=== PATIENT | female | born 1950 | race Caucasian/White ===

== ENCOUNTER 2025-01-20 18:48 | Emergency (ER) | payer MEDICARE, OTHER, SELFPAY ==
[2025-01-20 19:04] VITALS: BP 190/108
--- NOTE | 2025-01-20 21:02 | ED.GENMED ---
History of Present Illness
General
Chief Complaint: Skin Surface Trauma
Source: patient and spouse
Exam Limitations: none
Time Seen by Provider: 01/20/25 20:25
Nursing documentation reviewed up to this point in time: agreed with
History of Present Illness
History of Present Illness:
74-year-old female presenting to the emergency department today with concerns of a skin injury to the left lower leg after dropping a box of sodas hitting her mejia. Denies additional injuries no numbness weakness or additional concerns. She
believes her tetanus shot is up-to-date.
Review of Systems
Review of Systems
Allergies reviewed?: Yes
All Other Systems: ROS reviewed and negative except as documented in HPI and ROS
Phy Exam
Physical Exam
Physical Exam:
GENERAL: Alert , in no apparent distress
EYE: pupils equal and reactive
NECK: Supple, no significant adenopathy.
ENT: o/p clr, mmm.
CARDIAC: Regular rate and rhythm .
LUNGS: Clear breath sounds bilaterally, no acute respiratory distress, no wheezes/rales/rhonchi
ABDOMEN: Soft, without focal tenderness, no r/g, no cvat
NEUROLOGICAL: Alert and oriented, no focal neuro deficits
SKIN: Laceration to the left anterior lower mejia roughly 7 cm in total length V-shaped subcutaneous in depth, no foreign body seen warm and dry, skin intact.
MUSCULOSKELETAL: No edema, well perfused.
PSYCH: Normal and appropriate interaction.
Course
Vital Signs
Initial and Last Documented VS:
Initial Vital Signs
Temp Pulse Resp BP Pulse Ox
98.4 F 72 18 190/108 98
01/20/25 19:04 01/20/25 19:04 01/20/25 19:04 01/20/25 19:04 01/20/25 19:04
Last Documented Vital Signs
Temp Pulse Resp BP Pulse Ox
98.4 F 72 18 190/108 98
01/20/25 19:04 01/20/25 19:04 01/20/25 19:04 01/20/25 19:04 01/20/25 19:04
Procedures
Laceration Closure
Left Anterior Distal Leg:
Status of Wound: clean
Size of Wound in cm: 7
Description of Wound Edges: sharp and flap-well vascularized
Preparation: cleaned with saline
Anesthesia: other (7 mL bupivacaine)
Revision/Debridement: routine- no revision
Wound exploration: explored to base- no FB and no tendon involvement
Type of Closure: single layer closure and interrupted sutures
Skin Closure Material: 4-0 nylon
Number of sutures: 8
MDM/Problems Addressed
MDM/Problems Addressed:
74-year-old female presenting to the emergency department after dropping a box of sodas onto her left mejia. Laceration cleaned thoroughly closed with 8 not dissolving stitches low risk for infection not started on prophylactic antibiotics no
evidence of bony injury or foreign body. X-ray not performed patient is up-to-date with her tetanus shot. Stable for outpatient management return precautions given.
*Critical Care Note
Total Time (30-74mins, 75-104mins- exclusive of procedures): Not Applicable
ED Attending Note
-
Portions of this chart may have been created with voice recognition software.� Occasional wrong word or��sound alike� substitutions may have occurred due to the inherent limitations of voice recognition software.
Discharge Plan
Departure
Patient Disposition: Home (Routine Discharge)
Date of Disposition: 01/20/25
Time of Disposition: 21:02
Patient with high blood pressure during this ER visit?: No
Condition: Good
Covid-19: Not Applicable
Discharge Problem:
Laceration of mejia
Instructions: Laceration Repair With Stitches (DC)
Referrals:
Darrin Chapin MD [Family Provider] -
Activity Restrictions/Additional Instructions:
You came to the emergency department today with concerns of a laceration of your left mejia. This was cleaned thoroughly and closed with a total of dissolving stitches. Please follow-up in roughly 14 days for suture removal and reassessment.
Return for any worsening, new or concerning symptoms.
Interventions
Interventions:
*Risk Screen - Suicide Last Done: 01/20/25 19:04
*General Assessment Last Done: 01/20/25 19:04
*Neglect/Abuse Screening Last Done: 01/20/25 19:04
*ED- Fall Risk Assessment Last Done: 01/20/25 19:04
*ED COVID-19 Vaccine History Last Done: 01/20/25 19:04
ED-Skin Assessment Last Done: 01/20/25 19:59
Discharge Date and Time
Print Language: FRISIAN
[2025-01-20 21:08] VITALS: BP 193/89
== END 2025-01-20 21:09 | disposition home or self-care (01) ==
LOC: EMR 18:48
PROVIDERS: EMERGENCY PHYSICIAN Emergency Medicine; FAMILY PHYSICIAN Family Medicine
DX: S81.812A Laceration without foreign body, left lower leg, initial encounter (principal); W20.8XXA Other cause of strike by thrown, projected or falling object, initial encounter; I10 Essential (primary) hypertension; F41.9 Anxiety disorder, unspecified
CPT/HCPCS: 12032; 99283

== ENCOUNTER → 2025-04-03 12:51 | Outpatient (REF) | payer MEDICARE, OTHER, SELFPAY | LOC: HWRAD 12:51 | PROVIDERS: ATTENDING PHYSICIAN Family Medicine | DX: I82.402 Acute embolism and thrombosis of unspecified deep veins of left lower extremity (principal); R22.42 Localized swelling, mass and lump, left lower limb | CPT/HCPCS: 93971 ==